=== PATIENT | male | born 1985 | race Caucasian/White ===

== ENCOUNTER 2017-11-13 18:51 | Emergency (ER) | payer BC, OTHER ==
[~2017-11-13] VITALS: Ht 170.2 cm; Wt 68.0 kg
[2017-11-14 00:20] VITALS: BP 128/84
== END 2017-11-14 01:04 | disposition home or self-care (01) ==
LOC: ER 18:59
DX: F13.239 Sedative, hypnotic or anxiolytic dependence with withdrawal, unspecified (principal); J45.909 Unspecified asthma, uncomplicated
CPT/HCPCS: 99283; A4606; Z7610